=== PATIENT | male | born 1960 | race Caucasian/White ===

== ENCOUNTER 2019-10-08 20:46 | Emergency (ER) | payer BC ==
[~2019-10-08] VITALS: Ht 175.3 cm; Wt 86.2 kg
[~2019-10-08 20:46] MED LIST: ADULT LOW DOSE81 MG PO; FLEXERIL PO; GLUCOPHAGE1000 MG PO; IBUPROFEN 800800 M1 PO; NAPROSYN500 MG PO; NORCO 5-325 TA1 EACH PO
[2019-10-08] MEDS ORDERED: ADULT ASPIRIN R81 MG (20:59)
[2019-10-08] MEDS ORDERED: TRULICITY1.5 MG/0.5 (21:00)
[2019-10-08] MEDS ORDERED: INVOKANA (21:00)
[2019-10-08] MEDS ORDERED: CRESTOR5 MG (21:00)
[2019-10-08 21:27] LABS: ABSOLUTE BASOPHILS 0.1 thou/uL (0.0-0.2); ABSOLUTE EOSINOPHILS 0.2 thou/uL (0.0-0.7); ABSOLUTE LYMPHOCYTES 2.7 thou/uL (0.8-5.3); ABSOLUTE MONOCYTES 0.9 thou/uL (0.0-1.2); ABSOLUTE NEUTROPHILS 12.2 thou/uL (1.6-8.1); BASOPHILS 0.9 %; EOSINOPHILS 1.2 %; HEMATOCRIT 51.4 % (42.0-52.0); HEMOGLOBIN 18.1 gm/dL (14.0-18.0); LYMPHOCYTES 16.4 %; MCH 30.1 pg (26.0-34.0); MCHC 35.2 g/dL (28.0-37.0); MCV 85.4 fL (80.0-100.0); MONOCYTES 5.7 %; MPV 8.1 fl. (7.2-11.1); NUCLEATED RBCS 0 /100WBC; PLATELET COUNT* 269 thou/uL (150-400); POLYS 75.8 %; RBC 6.01 mil/uL (4.50-6.00); RDW-CV 14.3 % (10.5-14.5); WBC 16.1 thou/uL (4.0-11.0)
[2019-10-08 21:33] LABS: CALCIUM 9.3 mg/dL (8.5-10.1); CREATININE 0.9 mg/dL (0.6-1.3); POTASSIUM 4.6 mmol/L (3.5-5.1)
[2019-10-08 21:38] LABS: ALBUMIN 4.2 g/dL (3.4-5.0); TOTAL BILIRUBIN 0.7 mg/dL (<0.1-1.0); TOTAL PROTEIN 7.9 g/dL (6.4-8.2)
[2019-10-08 21:39] LABS: INR 1.1; PROTIME 10.9 Seconds (9.20-11.50)
[2019-10-08 22:38] LABS: INFLUENZA A ANTIGEN Negative (Negative); INFLUENZA B ANTIGEN Negative (Negative)
[2019-10-08 22:55] VITALS: BP 107/68
[2019-10-08] MEDS ORDERED: PRINIVIL10 MG (22:58)
--- NOTE | 2019-10-09 10:27 | EKG ---
[place] [address] ELECTROCARDIOGRAM REPORT Name: VELOZALVARO George [id number] Admission: 10/08/19 Attend Phys: Discharge: 10/08/19 Date of : 58 Report #: [id number] THIS REPORT FOR: //name// 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[place] : 1960 Requested By: Fany Bravo Order Number: [id number] MD: Honorio Watts Measurements Intervals [place] Rate: 97 P: 78 NM: 137 QRS: -22 QRSD: 82 T: 72 QT: 340 QTc: 432 Interpretive Statements Sinus rhythm Borderline left axis deviation Low voltage, extremity leads No previous ECG available for comparison Electronically Signed On 10-09-2019 10:26:23 MACHINE SET UP [employer] by Honorio Watts [email or web address] <ELECTRONICALLY SIGNED> By: Honorio Watts MD, LOCATED WITHIN [facility] 10/09/19 1026 2048 2048 Honorio Watts MD, FACC /EPI
== END 2019-10-08 22:55 | disposition home or self-care (01) ==
LOC: M.ERS 20:46
PROVIDERS: Personal Emergency Response Attendant
DX: J40 Bronchitis, not specified as acute or chronic (principal); E11.9 Type 2 diabetes mellitus without complications; Z88.5 Allergy status to narcotic agent; Z88.0 Allergy status to penicillin; Z88.2 Allergy status to sulfonamides

== ENCOUNTER 2020-02-24 21:06 | Emergency (ER) | payer OTHER, BC ==
[~2020-02-24] VITALS: Ht 175.3 cm; Wt 83.9 kg
[~2020-02-24 21:06] MED LIST changes: +ADULT ASPIRIN R81 MG; +CRESTOR5 MG; +INVOKANA; +PRINIVIL10 MG; +TRULICITY1.5 MG/0.5
[2020-02-24] MEDS ORDERED: JARDIANCE10 MG (21:23)
[2020-02-24 22:08] LABS: ABSOLUTE BASOPHILS 0.1 thou/uL (0.0-0.2); ABSOLUTE EOSINOPHILS 0.2 thou/uL (0.0-0.7); ABSOLUTE LYMPHOCYTES 3.7 thou/uL (0.8-5.3); ABSOLUTE MONOCYTES 0.9 thou/uL (0.0-1.2); ABSOLUTE NEUTROPHILS 8.6 thou/uL (1.6-8.1); BASOPHILS 1.1 %; EOSINOPHILS 1.7 %; HEMATOCRIT 50.9 % (42.0-52.0); HEMOGLOBIN 17.6 gm/dL (14.0-18.0); LYMPHOCYTES 27.6 %; MCH 29.8 pg (26.0-34.0); MCHC 34.6 g/dL (28.0-37.0); MCV 86.1 fL (80.0-100.0); MONOCYTES 6.4 %; MPV 8.1 fl. (7.2-11.1); NUCLEATED RBCS 0 /100WBC; PLATELET COUNT* 238 thou/uL (150-400); POLYS 63.2 %; RBC 5.91 mil/uL (4.50-6.00); RDW-CV 14.2 % (10.5-14.5); WBC 13.6 thou/uL (4.0-11.0)
[2020-02-24 22:20] LABS: CALCIUM 9.4 mg/dL (8.5-10.1); CREATININE 0.9 mg/dL (0.6-1.3); POTASSIUM 4.3 mmol/L (3.5-5.1)
[2020-02-24 22:25] LABS: ALBUMIN 4.1 g/dL (3.4-5.0); TOTAL BILIRUBIN 0.5 mg/dL (<0.1-1.0); TOTAL PROTEIN 7.9 g/dL (6.4-8.2)
[2020-02-24] MEDS ORDERED: CYCLOBENZAPRINE5 MG PO (23:09)
[2020-02-24] MEDS ORDERED: HYDROCODON-ACE1 EAC7 PO (23:09)
[2020-02-24] MEDS ORDERED: PREDNISONE50 MG PO (23:09)
[2020-02-24 23:25] VITALS: BP 150/60
--- NOTE | 2020-02-25 16:00 | EKG ---
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: : 1960 Requested By: Fany Bravo Order Number: [id number] MD: Fabio Leung Measurements Intervals Sun Rate: 73 P: 63 NE: 159 QRS: -11 QRSD: 93 T: 30 QT: 383 QTc: 422 Interpretive Statements Sinus rhythm Borderline low voltage, extremity leads Compared to ECG 10/08/2019 20:48:51 No significant changes Electronically Signed On 02-25-2020 15:58:55 CDT by Fabio Leung [email or web address] <ELECTRONICALLY SIGNED> By: Fabio Leung MD, [facility] 02/25/20 1558 15 15 Fabio Leung MD, [facility] /EPI
== END 2020-02-24 23:25 | disposition home or self-care (01) ==
LOC: M.ERS 21:06
PROVIDERS: Personal Emergency Response Attendant
DX: R07.89 Other chest pain (principal); M25.512 Pain in left shoulder; M54.6 Pain in thoracic spine; M54.2 Cervicalgia; E11.9 Type 2 diabetes mellitus without complications; Z88.0 Allergy status to penicillin; Z88.2 Allergy status to sulfonamides; Z88.5 Allergy status to narcotic agent; Z79.82 Long term (current) use of aspirin; Z79.84 Long term (current) use of oral hypoglycemic drugs; Z79.899 Other long term (current) drug therapy